=== PATIENT | male | born 1965 | race Caucasian/White ===

== ENCOUNTER 2024-06-12 18:03 | Emergency (ER) | payer BC ==
--- NOTE | 2024-06-12 19:08 | ED ---
General Adult HPI - General Chief complaint: Dizziness Stated complaint: Dizziness Time Seen by Provider: 06/12/24 18:13 Source: patient, RN notes reviewed, old records reviewed Mode of arrival: wheelchair Limitations: no limitations - History of Present Illness Initial comments: 58 -year-old male presenting with lightheadedness, dizziness. Patient symptoms began prior to arrival while he was standing at a wedding. He states he was standing for approximately 15 minutes. He states he had had something to eat but does admit that he does not drink enough fluid. No chest pain. No significant headache. No focal numbness or weakness. - Related Data Allergies Allergy/AdvReac Type Severity Reaction Status Date / Time No Known Allergies Allergy Verified 06/12/24 18:09 Review of Systems ROS Statement: Those systems with pertinent positive or pertinent negative responses have been documented in the HPI. ROS Other: All systems not noted in ROS Statement are negative. Past Medical History Past Medical History: Diabetes Mellitus History of Any Multi-Drug Resistant Organisms: MRSA Past Surgical History: Orthopedic Surgery Past Psychological History: No Psychological Hx Reported Smoking Status: Never smoker Past Alcohol Use History: None Reported Past Drug Use History: None Reported General Exam Limitations: no limitations General appearance: alert, in no apparent distress Head exam: Present: atraumatic, normocephalic Eye exam: Present: normal appearance, PERRL. Absent: nystagmus ENT exam: Present: mucous membranes moist Neck exam: Present: normal inspection. Absent: tenderness, meningismus Respiratory exam: Present: normal lung sounds bilaterally. Absent: respiratory distress Cardiovascular Exam: Present: regular rate, normal rhythm GI/Abdominal exam: Present: soft. Absent: distended, tenderness, guarding Extremities exam: Present: normal inspection, normal capillary refill Neurological exam: Present: alert, oriented X3, CN II-XII intact, other (Strength is 5 out of 5, no limb ataxia). Absent: motor sensory deficit Psychiatric exam: Present: normal affect, normal mood Skin exam: Present: warm, dry, intact Course Vital Signs 06/12/24 06/12/24 18:05 18:38 Temperature 97.7 F 98.4 F Pulse Rate 94 88 Respiratory 16 16 Rate Blood Pressure 148/102 146/97 O2 Sat by Pulse 99 99 Oximetry Medical Decision Making - Medical Decision Making Was pt. sent in by a medical professional or institution (, PA, [employer], urgent care, hospital, or assisted...) When possible be specific @ -No Did you speak to anyone other than the patient for history (EMS, parent, family, police, friend...)? What history was obtained from this source @ -No Did you review nursing and triage notes (agree or disagree)? Why? @ -I reviewed and agree with nursing and triage notes Were old charts reviewed (outside hosp., previous admission, EMS record, old EKG, old radiological studies, urgent care reports/EKG's, assisted records)? Report findings @ -No old charts were reviewed Differential Syncope: Valvular disease, hypertrophic cardiomyopathy, pulmonary embolism, tamponade, tachycardia, bradycardia, MA, hypovolemia, hemorrhage, dissection, anemia, intracranial hemorrhage, seizure, hypoglycemia, carbon monoxide poisoning, this is not meant to be an all-inclusive list. EKG interpreted by me (3pts min.). @EKG: Sinus rhythm with a first-degree AV block, rate of 85, WV interval 216, QRS duration 112, QTc [address] segment elevation. X-rays interpreted by me (1pt min.). @ -None done CT interpreted by me (1pt min.). @ -CT brain negative for intracranial hemorrhage or mass effect U/S interpreted by me (1pt. min.). @ -None done What testing was considered but not performed or refused? (CT, X-rays, U/S, labs)? Why? @ -None What meds were considered but not given or refused? Why? @ -None Did you discuss the management of the patient with other professionals (professionals i.e. , PA, [employer], lab, RT, psych nurse, hospital social worker, psych therapist, teacher, protective services officer, case worker)? Give summary @ -No Was smoking cessation discussed for >3mins.? @ -No Was critical care preformed (if so, how long)? @ -No Were there social determinants of health that impacted care today? How? (Homelessness, low income, unemployed, alcoholism, drug addiction, transportation, low edu. Level, literacy, decrease access to med. care, detention, rehab)? @ -No Was there de-escalation of care discussed even if they declined (Discuss DNR or withdrawal of care, Hospice)? DNR status @ -No What co-morbidities impacted this encounter? (DM, HTN, Smoking, COPD, CAD, Cancer, CVA, ARF, Chemo, Hep., AIDS, mental health diagnosis, sleep apnea, morbid obesity)? @ -[Diabetes Was patient admitted / discharged? Hospital course, mention meds given and route, prescriptions, significant lab abnormalities, going to OR and other pertinent info. @ -The 8-year-old male with near syncopal episode admits to not drinking enough fluid. Patient is feeling mostly better at the time my evaluation. He has stable vitals. He is in sinus rhythm. He has normal CBC, mildly elevated BUN/creatinine and elevated blood sugar. He is given IV fluids. Patient reevaluated in the emergency department. He is awake alert symptoms resolved. He is hungry. Suspect this was related to dehydration and prolonged standing. Patient will follow closely with his primary care provider. Undiagnosed new problem with uncertain prognosis? @ -No Drug Therapy requiring intensive monitoring for toxicity (Heparin, Nitro, Insulin, Cardizem)? @ -No Were any procedures done? @ -No Diagnosis/symptom? @ -Near syncope, dehydration Acute, or Chronic, or Acute on Chronic? @ -[Acute Uncomplicated (without systemic symptoms) or Complicated (systemic symptoms)? @ -Default Side effects of treatment? @ -No Exacerbation, Progression, or Severe Exacerbation? @ -No Poses a threat to life or bodily function? How? (Chest pain, USA, MA, pneumonia, PE, COPD, DKA, ARF, appy, cholecystitis, CVA, Diverticulitis, Homicidal, Suicidal, threat to staff... and all critical care pts) @ -[Low risk at this time - Lab Data Result diagrams: 06/12/24 19:10 06/12/24 19:10 Lab Results 06/12/24 06/12/24 06/12/24 Range/Units 19:10 19:10 19:10 WBC 8.6 (3.8-10.6) k/uL RBC 4.85 (4.30-5.90) m/uL Hgb 15.4 (13.0-17.5) gm/dL Hct 47.6 (39.0-53.0) % MCV 98.1 (80.0-100.0) fL MCH 31.8 (25.0-35.0) pg MCHC 32.4 (31.0-37.0) g/dL RDW 13.1 (11.5-15.5) % Plt Count 175 (150-450) k/uL MPV 7.6 Neutrophils % 66 % Lymphocytes % 22 % Monocytes % 6 % Eosinophils % 4 % Basophils % 1 % Neutrophils # 5.7 (1.3-7.7) k/uL Lymphocytes # 1.9 (1.0-4.8) k/uL Monocytes # 0.5 (0-1.0) k/uL Eosinophils # 0.4 (0-0.7) k/uL Basophils # 0.1 (0-0.2) k/uL PT 11.1 (10.0-12.5) sec INR 1.0 (<1.2) APTT 22.3 (22.0-30.0) sec Sodium 137 (137-145) mmol/L Potassium 5.3 H (3.5-5.1) mmol/L Chloride 102 (98-107) mmol/L Carbon Dioxide 25 (22-30) mmol/L Anion Gap 10 mmol/L BUN 40 H (9-20) mg/dL Creatinine 1.49 H (0.66-1.25) mg/dL Est GFR (CKD-EPI)AfAm 59 (>60 ml/min/1.73 sqM) Est GFR (CKD-EPI)NonAf 51 (>60 ml/min/1.73 sqM) Glucose 278 H (74-99) mg/dL Calcium 10.9 H (8.4-10.2) mg/dL Magnesium 1.6 (1.6-2.3) mg/dL Total Bilirubin 0.7 (0.2-1.3) mg/dL AST 27 (17-59) U/L ALT 27 (4-49) U/L Alkaline Phosphatase 45 (38-126) U/L Troponin I (0.000-0.034) ng/mL Total Protein 7.8 (6.3-8.2) g/dL Albumin 4.7 (3.5-5.0) g/dL 06/12/24 Range/Units 19:10 WBC (3.8-10.6) k/uL RBC (4.30-5.90) m/uL Hgb (13.0-17.5) gm/dL Hct (39.0-53.0) % MCV (80.0-100.0) fL MCH (25.0-35.0) pg MCHC (31.0-37.0) g/dL RDW (11.5-15.5) % Plt Count (150-450) k/uL MPV Neutrophils % % Lymphocytes % % Monocytes % % Eosinophils % % Basophils % % Neutrophils # (1.3-7.7) k/uL Lymphocytes # (1.0-4.8) k/uL Monocytes # (0-1.0) k/uL Eosinophils # (0-0.7) k/uL Basophils # (0-0.2) k/uL PT (10.0-12.5) sec INR (<1.2) APTT (22.0-30.0) sec Sodium (137-145) mmol/L Potassium (3.5-5.1) mmol/L Chloride (98-107) mmol/L Carbon Dioxide (22-30) mmol/L Anion Gap mmol/L BUN (9-20) mg/dL Creatinine (0.66-1.25) mg/dL Est GFR (CKD-EPI)AfAm (>60 ml/min/1.73 sqM) Est GFR (CKD-EPI)NonAf (>60 ml/min/1.73 sqM) Glucose (74-99) mg/dL Calcium (8.4-10.2) mg/dL Magnesium (1.6-2.3) mg/dL Total Bilirubin (0.2-1.3) mg/dL AST (17-59) U/L ALT (4-49) U/L Alkaline Phosphatase (38-126) U/L Troponin I <0.012 (0.000-0.034) ng/mL Total Protein (6.3-8.2) g/dL Albumin (3.5-5.0) g/dL Disposition Clinical Impression: Dehydration, Near syncope Disposition: HOME SELF-CARE Condition: Fair Instructions (If sedation given, give patient instructions): Near Syncope (ED), Dehydration (ED) Is patient prescribed a controlled substance at d/c from ED?: No Referrals: Nonstaff,Physician [Primary Care Provider] - 1-2 days Time of Disposition: 20:34
[2024-06-12 19:25] LABS: Basophils # (A) 0.1 k/uL (0-0.2); Basophils % (A) 1 %; Eosinophils # (A) 0.4 k/uL (0-0.7); Eosinophils % (A) 4 %; HCT 47.6 % (39.0-53.0); HGB 15.4 gm/dL (13.0-17.5); Lymphocytes # (A) 1.9 k/uL (1.0-4.8); Lymphocytes % (A) 22 %; MCH 31.8 pg (25.0-35.0); MCHC 32.4 g/dL (31.0-37.0); MCV 98.1 fL (80.0-100.0); Mean Platelet Volume 7.6; Monocytes # (A) 0.5 k/uL (0-1.0); Monocytes % (A) 6 %; Neutrophils # (A) 5.7 k/uL (1.3-7.7); Neutrophils % (A) 66 %; Platelet Count 175 k/uL (150-450); RBC 4.85 m/uL (4.30-5.90); RDW 13.1 % (11.5-15.5); WBC 8.6 k/uL (3.8-10.6)
[2024-06-12] MEDS: SODIUM CHLORIDE 0.9% 1,000 ML IV STA (19:28)
[2024-06-12 19:37] LABS: Partial Thromboplastin Time 22.3 sec (22.0-30.0); Prothrombin Time 11.1 sec (10.0-12.5)
[2024-06-12 19:57] LABS: ALT 27 U/L (4-49); AST 27 U/L (17-59); African American GFR (CKD) 59 (>60 ml/min/1.73 sqM); Albumin 4.7 g/dL (3.5-5.0); Alkaline Phosphatase 45 U/L (38-126); Anion Gap 10 mmol/L; Blood Urea Nitrogen 40 mg/dL (9-20); Calcium 10.9 mg/dL (8.4-10.2); Carbon Dioxide 25 mmol/L (22-30); Chloride 102 mmol/L (98-107); Glucose 278 mg/dL (74-99); Magnesium 1.6 mg/dL (1.6-2.3); Non-African American GFR(CKD) 51 (>60 ml/min/1.73 sqM); Potassium 5.3 mmol/L (3.5-5.1); Sodium 137 mmol/L (137-145); Total Bilirubin 0.7 mg/dL (0.2-1.3); Total Protein 7.8 g/dL (6.3-8.2)
--- NOTE | 2024-06-12 20:10 | CT ---
EXAMINATION TYPE: CT brain cspine wo con DATE OF EXAM: 06/12/2024 7:30 PM COMPARISON: None. CLINICAL INDICATION: Male, 58 years old with history of syncope; syncope TECHNIQUE: Brain: Multiple axial CT images of the brain were obtained without IV contrast. Cspine: Axial CT images from the skull base to the inferior aspect of T2 we obtained without intraven ous contrast. Coronal and sagittal reformatted images were also reviewed. . CT DLP: 1630 mGycm, Automated exposure control for dose reduction was used. FINDINGS: Brain: Extra-axial spaces: No abnormal extra-axial fluid collections. Ventricular system: Within normal limits Cerebral parenchyma: No acute intraparenchymal hemorrhage or mass effect. The perez-white junction is well differentiated. Cerebellum: Unremarkable. Mass effect: No evidence of midline shift. Intracranial vasculature: Atherosclerotic calcifications of the intracranial vessels. Soft tissues: Normal. Calvarium/osseous structures: No depressed skull fracture. Paranasal sinuses and mastoid air cells: Mild scattered mucosal thickening and or secretions. Visualized orbits: Orbital contents are intact. Cervical spine: Fracture: None. Osseous structures: Multilevel degenerative disc disease changes with endplate spurring and disc oste ophyte complex's. Vertebral alignment: Within normal limits. Spinal canal/Neural Foramina: No evidence of significant spinal canal narrowing. No evidence for sign ificant neural foraminal stenosis. Neck soft tissues: Prevertebral soft tissues are within normal limits. Other: The airway is patent. The lung apices are clear. IMPRESSION: 1. No acute intracranial process. 2. No evidence of cervical spine fracture. 3. Mild to moderate multilevel degenerative disc disease. [facility], , 06/12/2024 8:08 PM
[2024-06-12 20:51] VITALS: BP 130/88; PULSE 81; RESP 18; TEMP 97.6
== END 2024-06-12 20:50 | disposition home or self-care (01) ==
LOC: EC 18:03
DX: E86.0 Dehydration (principal); R55 Syncope and collapse
CPT/HCPCS: 36415; 70450; 72125; 80053; 83735; 84484; 85025; 85610; 85730; 93005; 96360; 99284